=== PATIENT | female | born 1985 | race American Indian/Alaskan Native ===

== ENCOUNTER 2019-02-10 05:11 | Observation (INO) ==
--- NOTE | 2019-01-23 12:56 | PAT Medication Instructions ---
Medication Instructions Date of Service January 23, 2019 Home Medications etonogestrel-ethinyl estradiol 0.12 mg -0.015 mg/24 hr vaginal ring 1 vag ring PV UD ASK your surgeon for instructions etonogestrel-ethinyl estradiol 0.12 mg -0.015 mg/24 hr vaginal ring 1 vag ring PV UD Other Notes If you have any questions please call us at [phone] or [phone] or [phone] or [phone]
--- NOTE | 2019-01-24 15:58 | Anesthesiology Consultation ---
Date of Service January 24, 2019 Assessment & Plan (1) Encounter for pre-operative examination: - Check test AM DOS Chart Review Chart Review: Pending: Refer to Additional Notes / Consult section (pending p reop testing (labs)) and Patient seen in Pre Admission Testing Teaching & Discussion Pre-Anesthesia Teaching/Discussion Notes: Instructed NPO after midnight before s urgery,except medications with 15 cc of water. Medication instructions provided according to the PAT guidelines. History Surgery Operation Date: 02/10/19 09:50 Proposed Procedures p Robotic Laparoscopic Operative Myomectomy - Jacqui Monroy MD, FACOG Height/Weight Height: 5 ft 8 in Weight: 70 kg Allergies Allergy/AdvReac Type Severity Reaction Status Date / Time nickel Allergy Mild RED AND Verified 01/24/19 14:55 ITCHY WITH SOME JEWELRY amoxicillin Allergy Unknown HIVES,THROA Verified 01/24/19 14:55 T Medications Home Medications Medication Instructions Recorded Confirmed Last Taken etonogestrel-ethinyl estradiol 1 vag ring PV UD ea 11/14/18 01/24/19 Unknown 0.12 mg -0.015 mg/24 hr vaginal ring ibuprofen 600 mg tablet 600 mg PO Q6H PRN #20 tab 01/24/19 01/24/19 Unknown oxycodone-acetaminophen 5 mg-325 1 tab PO Q6H PRN #20 tab 01/24/19 01/24/19 Unknown mg tablet Past Medical History Medical History Uterine leiomyoma Exercise / Class Metabolic Activity II 4-5 Yardwork/Stairs/Walk up hill Past Family History Family History Sister Family history of diabetes mellitus PREDIABETIC Past Surgical History Surgical History History of tooth extraction WISDOM TEETH S/P laparotomy FOR DERMOID CYST Past Anesthesia History No Hx of Anesthesia Complications and No Family Hx of Anesthesia Complications History of PONV No Hx of PONV and No Hx of Motion Sickness Social History Smoking Status: Light tobacco smoker tobacco type: cigarettes Smoking cigarettes per day: 2-3 CIGS A DAY X 1 YR Do You Dip or Chew Tobacco: No Hx Alcohol Use: Yes Alcohol type: beer, wine and hard liquor alcohol intake frequency: a few times a week Hx Substance Use: No Review of Systems Patient denies chest pain, shortness of breath, dyspnea on exertion, reflux, cough, wheezing, palpitations. Physical Exam Vital Signs VITALS BP 107/72 P 62 TEMP 98.7 SP02 93%RA RESP 18 PHYSICAL Full neck and c-spine range of motion. Full TMJ range of motion. TMD 3.5 finger breaths Mallampati Score 2 Dentition: intact, implants on molars Lungs: clear throughout to auscultation Cardiac: regular rate and rhythm, no murmurs noted Spine: normal Carotid arteries: negative bruit Extremities: no edema
[2019-01-24 16:32] LABS: Basophils # (auto) 0.03 K/uL (0-0.2); Basophils % (auto) 0.7 %; Eosinophils # (auto) 0.03 K/uL (0-0.5); Eosinophils % (auto) 0.7 %; Hemoglobin 11.6 g/dL (12.0-16.0); Lymphocytes # (auto) 1.68 K/uL (1.2-3.4); Lymphocytes % (auto) 36.6 %; Mean Corpuscular Hemoglobin 27.6 pg (25-34); Mean Corpuscular Hgb Conc 33.1 g/dL (32-36); Mean Corpuscular Volume 83.1 fL (80-100); Mean Platelet Volume 9.3 fL (7.4-10.4); Monocytes # (auto) 0.43 K/uL (0.11-0.59); Monocytes % (auto) 9.4 %; Neutrophils # (auto) 2.42 K/uL (1.4-6.5); Neutrophils % (auto) 52.6 %; Platelet Count 257 K/uL (130-400); RDW Coefficient of Variation 14.3 % (11.5-14.5); RDW Standard Deviation 43.6 fL (36.4-46.3); Red Blood Count 4.21 M/uL (4.2-5.4); White Blood Count 4.59 K/uL (4.8-10.8)
[2019-01-24 16:39] LABS: BUN Creatinine Ratio 10.3 (10-20); Calcium 9.2 mg/dl (8.5-10.1); Creatinine Clr Calc Pharmacy 80.8 ml/min; Est GFR (African American) 86.2; Est GFR (Non-African American) 74.3; Potassium 4.2 mmol/L (3.5-5.1)
[2019-02-10] MEDS ORDERED: LR 15ML/HR IV SCH (06:00)
[2019-02-10] MEDS ORDERED: LACTATED RINGER'S 1,000 ML IV SCH ×2 (06:00→11:04)
[2019-02-10] MEDS ORDERED: ONDANSETRON INJ 2 MG/ML 2 ML VIAL ONE (06:48)
[2019-02-10] MEDS ORDERED: MIDAZOLAM HCL 1 MG/ML 2ML VIAL ONE (06:48)
[2019-02-10] MEDS ORDERED: DEXAMETHASONE SOD INJ 4 MG/ML VIAL ONE (06:48)
[2019-02-10] MEDS ORDERED: GLYCOPYRROLATE 0.2 MG/ML VIAL ONE (06:48)
[2019-02-10] MEDS ORDERED: fentaNYL citrate 100 MCG/2 ML VIAL ONE (06:48)
[2019-02-10] MEDS ORDERED: NEOSTIGMINE METHYLSULFATE 5 MG/5 ML SYR ONE (06:48)
[2019-02-10] MEDS ORDERED: LIDOCAINE HCL 2% 2 ML VIAL/AMP(20MG/ML) INFIL ONE (06:48)
[2019-02-10] MEDS ORDERED: PROPOFOL IV EMULSION 10 MG/ML 20 ML VIAL IV ONE (06:48)
[2019-02-10] MEDS ORDERED: BUPIVACAINE 0.5 % 5 MG/1 ML MPF 30ML VIAL ONE (07:00)
--- NOTE | 2019-02-10 07:00 | History & Physical Bridge Note ---
Date of Service February 10, 2019 History & Physical Bridge Note I have examined the patient, reviewed the History & Physical and in the interval since the performance of the History & Physical I have noted the following changes of clinical significance: no changes noted
[2019-02-10] MEDS ORDERED: SODIUM CHLORIDE 0.9% INJ 10 ML VIAL ONE (07:32)
[2019-02-10] MEDS ORDERED: SODIUM CHLORIDE 0.9% PF 50 ML VIAL ONE (07:33)
[2019-02-10] MEDS ORDERED: VASOPRESSIN 20 UNIT/ML VIAL ONE (07:33)
[2019-02-10] MEDS ORDERED: ATROPINE SULFATE 0.1 MG/ML 10ML SYR IV PRN (08:51)
[2019-02-10] MEDS ORDERED: HYDROmorphone INJ 1 MG/ML SYRINGE IV PRN (08:51)
[2019-02-10] MEDS ORDERED: PROMETHAZINE HCL 12.5 MG in SODIUM CHLORIDE 0.9% 50 ML IV PRN ×2 (08:51→11:04)
[2019-02-10] MEDS ORDERED: NALOXONE HCL 0.4 MG/1 ML VIAL/CARP IV PRN (08:51)
[2019-02-10] MEDS ORDERED: ePHEDrine sulfate 50 MG/ML AMP IV PRN (08:51)
[2019-02-10] MEDS ORDERED: LABETALOL HCL IV 5 MG/ML 20ML IV PRN (08:51)
[2019-02-10] MEDS ORDERED: FLUMAZENIL 0.1 MG/1 ML 10 ML VIAL IV PRN (08:51)
[2019-02-10] MEDS ORDERED: ONDANSETRON INJ 2 MG/ML 2 ML VIAL IV PRN ×2 (08:51→11:04)
[2019-02-10] MEDS ORDERED: TISSEEL FIBRIN SEALANT 4ML TOP ONE (08:57)
[2019-02-10] MEDS ORDERED: ROCURONIUM BROMIDE 10 MG/ML 5 ML VIAL ONE (09:15)
[2019-02-10] MEDS ORDERED: KETOROLAC 30 MG/ML VIAL ONE (09:24)
--- NOTE | 2019-02-10 09:52 | Operative Report ---
PG Post Operative Report Pre & Post Diagnosis Operation Date: 02/10/19 07:30 Pre-Op Diagnosis: Uterine Leiomyoma Post-Op Diagnosis: Uterine Leiomyoma I identified the patient and participated in the time-out.: Yes Procedure Operation Date: 02/10/19 07:30 Actual Procedures p Robotic Laparoscopic Myomectomy, Lysis of Adhesions(Not Applicable) - Jacqui Monroy MD, FACOG Surgeon Jacqui Monroy MD, FACOG Recapper none Estimated Blood Loss 20 Findings Consistent with Post-Op Diagnosis Specimens uterine fibroid Description of Procedure Patient given a general anesthetic prepped and draped in dorsal lithotomy position in [facility] bladder drained with a Recio catheter V care attached within the uterus to manipulate glove change and a supraumbilical incision was made with scalpel using Bob technique we did a cutdown into the peritoneal cavity blunt-tipped Bob trocar then placed port secured with air used for the balloon CO2 gas used to insufflate the abdomen. Findings upper abdomen normal no sign of visceral organ injury there were some adhesions from her prior surgery specifically omentum on the anterior abdominal wall. The uterus itself appeared normal there was no right adnexa as she had a prior RSO the fibroid could be identified as expected about 4 cm anterior and right-sided. 3 robotic ports were placed to on the right and one on the left in the left upper quadrant 11 mm blade less port was also placed robot was docked after deep Trendelenburg position arm #1 was monopolar leilani arm #2 bipolar [place] arm #3 was the tenaculum procedure was begun by injecting Pitressin first into the uterus 20 units into 60 cc of normal saline. Once we jelani the uterus made an incision over the uterus in a horizontal fashion anteriorly we then were able to identify the fibroid it was grasped with a tenaculum and with tension and using the electrosurgery as needed with the monopolar leilani it was able to cut away the fibroid from its attachment in the uterine wall we did not enter the uterine cavity. At this stage the fibroid was placed into the cul-de-sac for safekeeping instrument exchange occurred arm #1 became John Paul needle courtesy driver arm #2 the Optinuityra grasper arm #3 the pro-grasp using a 3 layer closure of the uterus deep layers and then superficial layer we used 30V lock suture and then a 2 OV lock suture at this stage the needles had already been removed and details cut so there was no excess tail hemostasis was excellent we did apply Tisseel to the area. It should be noted to there was some adhesions anteriorly we did apply some Tisseel to these as these were cut down prior to this with the careful use of electrosurgery. At this stage the robot instruments removed robot undocked a 5 mm laparoscope was placed in the abdomen and I was able to place the fibroid in a bag placed through the umbilical port bag was then brought up to the umbilical port was able to extend the incision in the fascia a little bit to allow delivery of the fibroid appeared to be about 4 to 5 cm fibroid. At this stage after we visualization of the pelvis and irrigation suction hemostasis was excellent fascia was carefully closed with 0 Vicryl in the umbilical incision and in a deep layer in the left upper quadrant incision irrigation at all and incisions injected with 0.5% Marcaine and fascia skin the skin closed with 4-0 subcuticular Monocryl Dermabond applied Recio cath removed urine was clear instruments removed the cervix and vagina expected the cervix there was no bl eeding sponge and instrument counts correct I attest to the content of the Intraoperative Record and any orders documented therein. Any exceptions are noted below.
--- NOTE | 2019-02-10 11:02 | Anesthesiology Progress Note ---
Date of Service February 10, 2019 Anesthesia Post Procedure Vital Signs Vital Signs: Temp Pulse Pulse Resp BP BP Pulse Ox 02/10/19 10:35 36.6 C 58 L 16 127/89 98 02/10/19 10:25 63 17 126/88 98 02/10/19 10:15 55 L 18 123/87 100 02/10/19 10:05 55 L 18 128/83 100 02/10/19 09:57 36.4 C L 69 16 133/85 100 02/10/19 05:32 36.6 C 61 18 119/67 100 Pain Intensity Abdomen: Pain Intensity: 3 Transfer of Care Handoff Completed per policy Notes Mental Status: alert / awake / arousable Patient Amnestic to Procedure: Yes Nausea / Vomiting: adequately controlled Pain: adequately controlled Airway Patency, RR, SpO2: stable & adequate BP & HR: stable & adequate Hydration State: stable & adequate Anesthetic Complications: no major complications apparent
[2019-02-10] MEDS ORDERED: IBUPROFEN 600 MG TAB PO PRN (11:04)
[2019-02-10] MEDS ORDERED: ACETAMINOPHEN 325 MG TAB PO PRN (11:04)
[2019-02-10] MEDS ORDERED: KETOROLAC 30 MG/ML VIAL IV PRN (11:04)
[2019-02-10] MEDS ORDERED: MEPERIDINE HCL 50 MG/ML CARP IV PRN (11:04)
[2019-02-10] MEDS ORDERED: ETONOGESTREL ETHINYL ESTRADIOL PV SCH (11:04)
[2019-02-10] MEDS ORDERED: BISACODYL 10 MG SUPP PR PRN (11:04)
[2019-02-10] MEDS ORDERED: MAGNESIUM HYDROXIDE SUSP 30 ML UDC PO PRN (11:04)
[2019-02-10] MEDS ORDERED: OXYCODONE/ACETAMINOPHEN 5mg/325mg TAB PO PRN ×2 (11:04)
[2019-02-10] MEDS ORDERED: ZOLPIDEM TARTRATE 5 MG TAB PO PRN (11:04)
[2019-02-10] MEDS ORDERED: SIMETHICONE 80 MG CHEW PO PRN (11:04)
[2019-02-10] MEDS ORDERED: DOCUSATE SODIUM 100 MG CAP PO SCH (21:00)
--- NOTE | 2019-02-13 07:54 | Discharge Summary ---
Date of Service February 13, 2019 Had laparoscopic myomectomy , went home same day Discharge Data Procedures Performed Operation Date: 02/10/19 07:30 Actual Procedures p Robotic Laparoscopic Myomectomy, Lysis of Adhesions(Not Applicable) - Jacqui Monroy MD, FACOG Hospital Course (1) Leiomyoma: Uncomplicated laparoscopic myomectomy and was discharged same day. Voiding well, ambulating, pain well controlled. Discharge instructons reviewed
== END 2019-02-10 14:45 | disposition home or self-care (01) ==
LOC: 4N 05:11 → ASU 05:11